=== PATIENT | female | born 1965 | race Caucasian/White ===

== ENCOUNTER 2023-04-26 12:59 | Outpatient (CLI) | payer OTHER, SELFPAY ==
--- NOTE | ~2023-04-26 | CT_ITS ---
EXAMINATION:CT lung screening DATE: 04/26/2023 13:23 INDICATION: Tobacco use. Current smoker with 35 pack year history. TECHNIQUE: Computed tomography (CT) of the chest was performed without intravenous contrast. Automate d exposure control and iterative reconstruction technique were employed. The dose-length product (DLP ) was 63.00 mGy-cm. COMPARISON: None. FINDINGS: There is mild scarring at right lung apex. A calcified left lung nodule and calcified left hilar lymph nodes are consistent with old granulomatous disease. There is mild atelectasis in right m iddle lobe and lingula. There is a small left posterior diaphragmatic hernia containing fat. No pleur al effusion. The heart size is normal. No pericardial effusion. There is a 16 mm cyst in the liver. C alcifications in the spleen are consistent with old granulomatous disease. There is severe cervical a nd thoracic spondylosis. IMPRESSION: 1. Lung-RADS category 2: Benign appearance or behavior. Continue annual screening with noncontrast lo w-dose chest CT in 12 months. Reviewed, dictated and finalized at location A. IMPRESSION: 1. Lung-RADS category 2: Benign appearance or behavior. Continue annual screeni ng with noncontrast low-dose chest CT in 12 months.
== END 2023-04-26 13:00 | disposition home or self-care (01) ==
LOC: ANHIMG 13:04
PROVIDERS: PCP Family Medicine; Visit Provider Physician Assistant
DX: Z12.2 Encounter for screening for malignant neoplasm of respiratory organs (principal); F17.210 Nicotine dependence, cigarettes, uncomplicated
CPT/HCPCS: 71271